=== PATIENT | female | born 1965 ===

== ENCOUNTER → 2024-08-27 06:32 | Outpatient (CLI) | payer OTHER ==
[2024-08-27 07:23] LABS: HEMATOCRIT 36.4 % (36.0-45.00); HEMOGLOBIN 12.1 g/dL (12.0-15.00); MEAN CELL VOLUME 90.2 fL (80.00-100.00); MEAN CORPUSCULAR HEMOGLOBIN 29.9 pg (27.00-32.0); MEAN CORPUSCULAR HGB CONC 33.1 g/dl (32.0-36.0); PLATELET COUNT 217 K/uL (150-450); RED BLOOD COUNT 4.04 M/uL (4.00-6.00); RED CELL DISTRIBUTION WIDTH 14.8 % (11.5-14.5)
[2024-08-27 07:31] LABS: URINE APPEARANCE Cloudy; URINE BILIRRUBIN Negative (NEGATIVE); URINE BLOOD Moderate; URINE COLOR Yellow; URINE GLUCOSE Negative (NEGATIVE); URINE KETONE Negative (NEGATIVE); URINE LEUKOCYTE Large; URINE NITRATE Negative; URINE PROTEIN Trace (NEGATIVE); URINE UROBILINOGEN 0.2 E.U./dl
[2024-08-27 07:33] LABS: URINE EPITHELIAL CELLS 6.1 uL (0.0-38.8); URINE RBC 4.5 uL (0.0-20.8); URINE WBC 1643.9 uL (0.0-23.2)
[2024-08-27 07:35] LABS: URINE CAST 0.88 uL (0.0-1.40)
[2024-08-27 08:10] LABS: CALCIUM 9.1 mg/dL (8.5-10.1); CHOL HDL RATIO 2.5 (0-5.0); CREATININE SERUM 0.8 mg/dL (0.55-1.02); GFR 73.16; POTASSIUM 4.9 mEq/L (3.5-5.1)
== END | disposition home or self-care (01) ==
LOC: LAB 06:32
DX: E11.9 Type 2 diabetes mellitus without complications (principal)

== ENCOUNTER → 2025-05-09 06:07 | Outpatient (CLI) | payer OTHER ==
[2025-05-09 07:44] LABS: BASO % 0.4 % (0.1-1.2); EOS # 0.12 (0.04-0.54); EOS % 2.4 % (0.7-7.0); LYMPH # 1.89 (1.18-3.74); LYMPH % 38.5 % (19.3-53.1); MEAN PLATELET VOLUME 10.40 fl (9.4-12.4); MONO # 0.44 (0.24-0.82); MONO % 9.0 % (4.7-12.5); NEUT # 2.43 (1.56-6.13); NEUT % 49.5 % (34.0-71.1); RED CELL DISTRIBUTION WIDTH 16.0 % (11.6-14.4)
[2025-05-09 07:54] LABS: URINE APPEARANCE Turbid; URINE BILIRRUBIN Negative (NEGATIVE); URINE BLOOD Moderate; URINE COLOR Yellow; URINE GLUCOSE Negative (NEGATIVE); URINE KETONE Trace (NEGATIVE); URINE LEUKOCYTE Large; URINE NITRATE Negative; URINE PROTEIN 30 (NEGATIVE); URINE UROBILINOGEN 0.2 E.U./dl
[2025-05-09 07:58] LABS: URINE CAST 1.78 uL (0.0-1.40); URINE EPITHELIAL CELLS 10.1 uL (0.0-38.8); URINE RBC 57.8 uL (0.0-20.8)
[2025-05-09 08:09] LABS: URINE BACTERIA > 9821.5 uL (0.0-1933); URINE WBC > 5548.3 uL (0.0-23.2)
[2025-05-09 08:22] LABS: BUN CREA RATIO 25.0 (7.0-25.0); CREATININE SERUM 0.87 mg/dL (0.55-1.02); GFR 66.19; GLUCOSE FASTING 96.0 mg/dL (65-100); OSMOLALITY SERUM 290.0 MOSM/KG (275-295)
== END | disposition home or self-care (01) ==
LOC: LAB 06:07
DX: N20.0 Calculus of kidney (principal)